=== PATIENT | female | born 1965 | race Caucasian/White ===

== ENCOUNTER 2017-10-04 13:58 | Emergency (ER) | payer OTHER ==
[~2017-10-04] VITALS: Ht 167.6 cm; Wt 70.3 kg
[2017-10-04] MEDS ORDERED: Aspir-Trin325 MG PO (15:04)
[2017-10-04 15:23] LABS: BASOPHILS ABSOLUTE AUTO 0.08 K/mm3 (0.00-0.23); BASOPHILS PERCENT AUTO 1 % (0-2); EOSINOPHILS ABSOLUTE AUTO 0.16 K/mm3 (0.00-0.68); EOSINOPHILS PERCENT AUTO 2 % (0-6); Hemoglobin 14.9 g/dL (11.5-16.0); IMMATURE GRAN ABSOLUTE AUTO 0.03 K/mm3 (0.00-0.10); IMMATURE GRAN PERCENT AUTO 0 % (0-1); LYMPHOCYTES ABSOLUTE AUTO 3.37 K/mm3 (0.84-5.20); LYMPHOCYTES PERCENT AUTO 40 % (21-46); MONOCYTES ABSOLUTE AUTO 0.58 K/mm3 (0.16-1.47); MONOCYTES PERCENT AUTO 7 % (4-13); Mean Corpuscular HGB 28.9 pg (26.0-34.0); Mean Corpuscular HGB Conc 33.1 g/dL (31.5-36.5); Mean Corpuscular Volume 87 fL (80-100); NEUTROPHILS PERCENT AUTO 50 % (41-73); RDW Coefficient Variation 12.8 % (11.7-14.2); RDW Standard Deviation 40.7 fL (35.1-46.3); Red Blood Cell Count 5.16 M/mm3 (3.80-5.20); White Blood Cell Count 8.52 K/mm3 (4.00-11.30)
[2017-10-04 15:27] LABS: Mean Platelet Volume 11.3 fL (9.1-12.4); Platelet Count 195 K/mm3 (150-400)
[2017-10-04 15:47] LABS: Magnesium, Blood 2.6 mg/dL (1.6-2.4)
[2017-10-04 15:49] LABS: Anion Gap 9 mmol/L (6-16); Blood Urea Nitrogen 9 mg/dL (8-24); Bun/Creatinine Ratio 14.5 (12.0-20.0); CO2, Blood 24 mmol/L (21-32); Chloride, Blood 107 mmol/L (98-108); Creatinine, Blood 0.62 mg/dL (0.40-1.00); Glomerular Filtration Rate >60 (60-); Glucose, Blood 83 mg/dL (70-99); Potassium, Blood 3.8 mmol/L (3.5-5.5); Sodium, Blood 140 mmol/L (136-145)
[2017-10-04] MEDS ORDERED: PSEU120ER PO (19:19)
== END 2017-10-04 19:27 | disposition home or self-care (01) ==
LOC: ER 13:58
PROVIDERS: Emergency Medicine
DX: H65.93 Unspecified nonsuppurative otitis media, bilateral (principal); R42 Dizziness and giddiness; F17.200 Nicotine dependence, unspecified, uncomplicated; Z79.82 Long term (current) use of aspirin
CPT/HCPCS: 70450; 80048; 83735; 84484; 85025; 93005; 93010; 99284

== ENCOUNTER → 2017-12-04 | Outpatient (CLI) | payer OTHER ==
[~2017-12-04] MED LIST: Aspir-Trin325 MG PO; PSEU120ER PO
== END | disposition home or self-care (01) ==
LOC: LAB SHORT 16:26 → LAB 16:26
DX: R05 Cough (principal)
CPT/HCPCS: 87798

== ENCOUNTER 2018-06-08 12:36 | Emergency (ER) | payer OTHER ==
[~2018-06-08] VITALS: Ht 170.2 cm; Wt 68.0 kg
[2018-06-08] MEDS ORDERED: ALBU90OI INH (13:44)
[2018-06-08] MEDS ORDERED: Zithromax250 MG PO (13:44)
== END 2018-06-08 13:51 | disposition home or self-care (01) ==
LOC: ER 12:36
DX: R05 Cough (principal); F17.210 Nicotine dependence, cigarettes, uncomplicated; Z91.048 Other nonmedicinal substance allergy status; Z79.82 Long term (current) use of aspirin
CPT/HCPCS: 94640; 99283-25

== ENCOUNTER → 2019-03-18 | Outpatient (CLI) | payer OTHER ==
[~2019-03-18] MED LIST changes: +ALBU90OI INH; +Zithromax250 MG PO
[2019-03-20 14:07] LABS: HPV 16 Negative (Negative); HPV 18 Negative (Negative); HPV OTHER HR TYPES Negative (Negative)
== END | disposition home or self-care (01) ==
LOC: EDSTATUS 10:52 → LAB 14:18 → LAB SHORT 14:18
PROVIDERS: Nurse Practitioner Women's Health
DX: Z12.72 Encounter for screening for malignant neoplasm of vagina (principal); Z91.89 Other specified personal risk factors, not elsewhere classified
CPT/HCPCS: 87624; G0123

== ENCOUNTER 2022-03-21 19:18 | Emergency (ER) | payer OTHER ==
[~2022-03-21] VITALS: Ht 167.6 cm; Wt 77.1 kg
== END 2022-03-21 19:54 | disposition home or self-care (01) ==
LOC: ER 19:18
DX: H00.014 Hordeolum externum left upper eyelid (principal); F17.210 Nicotine dependence, cigarettes, uncomplicated; Z79.82 Long term (current) use of aspirin
CPT/HCPCS: 99282

== ENCOUNTER → 2022-08-17 | Outpatient (CLI) | payer OTHER | END | disposition home or self-care (01) | LOC: LAB SHORT 09:30 | DX: R05.1 Acute cough (principal); R09.3 Abnormal sputum | CPT/HCPCS: 87070; 87205 ==

== ENCOUNTER 2023-07-31 08:50 | Day surgery (SDC) | payer OTHER ==
[2023-07-31] VITALS (9 sets, daily range): BP systolic 97–131; BP diastolic 43–76
[~2023-07-31] VITALS: Ht 167.6 cm; Wt 80.5 kg
[2023-07-31] MEDS ORDERED: CeFAZolin Sodium 2,000 MG in NS 50 ML IV SCH (09:20)
[2023-07-31] MEDS ORDERED: Lactated Ringer's 1,000 ML IV SCH (09:20)
--- NOTE | 2023-07-31 10:15 | NUR ---
Ambulatory in Day Surgery History, Chart, Medications and Allergies reviewed before start of procedure.Patient confirms NPO status and agrees with scheduled surgery. Patient reports completing Chlorhexadine shower X2 prior to admission to hospital. PATIENT WITH COUGH. REPORTS PRESENT FOR 3 WEEKS. IMPROVING AT THIS TIME.
[2023-07-31] MEDS ORDERED: Bupivacaine 0.5% HCl 5 MG/ML 30MLVIAL ONE (10:49)
[2023-07-31] MEDS ORDERED: Ipratropium/Albuterol SulF 2.5-0.5MG/3 ML Amp ONE (11:29)
[2023-07-31] MEDS ORDERED: OxyCODONE 5 mg/Acetamin 325 mg TABLET PO PRN (11:40)
[2023-07-31] MEDS ORDERED: Ondansetron HCl 2 MG / ML 2ML Vial IV PRN (11:40)
--- NOTE | 2023-07-31 12:50 | NUR ---
Patient up to Ambulate independently. Gait steady. VSS AND CONSISTENT WITH PT BASELINE. PT HAS NO COMPLAINTS AND VERBALIZES READINESS TO GO HOME. Discharge instructions reviewed with patient. Patient verbalizes understanding. Copy given to patient to take home. PT WAS UP TO BR AND HAD MINIMAL VAGINAL BLEEDING NOTED. [employer] PAD PROVIDED FOR RIDE HOME. Patient States Post-Procedure ride home has been arranged. Discharged via wheelchair to private car for ride home. PT BELONGINGS RETURNED TO PT.
== END 2023-07-31 12:52 | disposition home or self-care (01) ==
LOC: ORSCMMR 08:50 → ORD 10:15 → ORSCMMR 12:52
PROVIDERS: Obstetrics & Gynecology
PROC: 0HB8XZX Excision of Buttock Skin, External Approach, Diagnostic (ICD-10-PCS; principal; 2023-07-31 10:15)
DX: A63.0 Anogenital (venereal) warts (principal); D68.51 Activated protein C resistance; Z79.82 Long term (current) use of aspirin; Z87.891 Personal history of nicotine dependence; J45.909 Unspecified asthma, uncomplicated; Z79.51 Long term (current) use of inhaled steroids; Z79.899 Other long term (current) drug therapy
CPT/HCPCS: 88305; J0690; J7120

== ENCOUNTER 2024-07-02 09:22 | Inpatient (IN) | payer OTHER ==
[~2024-07-02] VITALS: Ht 167.6 cm; Wt 72.6 kg
[2024-07-02] VITALS (14 sets, daily range): BP systolic 85–121; BP diastolic 58–83
[~2024-07-02 09:22] MED LIST changes: +ASPI81CH PO; -Aspir-Trin325 MG PO
[2024-07-02] MEDS ORDERED: FentaNYL Citrate 50 MCG/ML 2 ML Injection ONE ×2 (09:28→10:49)
[2024-07-02] MEDS ORDERED: Verapamil HCL 2.5 MG/ML 2ML Injection ONE (09:28)
[2024-07-02] MEDS ORDERED: Phenylephrine HCl 100 MCG/ML-NS 10MLSYR (1MG/10ML) ONE (09:28)
[2024-07-02] MEDS ORDERED: NS 1,000 ML IV ONE ×2 (09:28)
[2024-07-02] MEDS ORDERED: Midazolam HCl 1MG / ML 2ML Vial ONE (09:28)
[2024-07-02] MEDS ORDERED: Heparin Sodium 1000 Units/ML 10ML MDV ONE (09:28)
[2024-07-02] MEDS ORDERED: Atropine Sulfate 0.1 MG/ML 10ML SYR ONE (09:28)
[2024-07-02] MEDS ORDERED: Nitroglycerin 2 MG/20 ML BTL ONE (09:29)
[2024-07-02] MEDS ORDERED: NS 250 ML IV ONE (09:29)
[2024-07-02 09:38] LABS: BASOPHILS ABSOLUTE AUTO 0.11 K/mm3 (0.00-0.23); BASOPHILS PERCENT AUTO 1 % (0-2); EOSINOPHILS ABSOLUTE AUTO 0.16 K/mm3 (0.00-0.68); EOSINOPHILS PERCENT AUTO 2 % (0-6); Hematocrit 41.9 % (33.0-51.0); Hemoglobin 13.9 g/dL (11.5-16.0); IMMATURE GRAN ABSOLUTE AUTO 0.05 K/mm3 (0.00-0.10); IMMATURE GRAN PERCENT AUTO 1 % (0-1); LYMPHOCYTES ABSOLUTE AUTO 3.97 K/mm3 (0.84-5.20); LYMPHOCYTES PERCENT AUTO 36 % (21-46); MONOCYTES ABSOLUTE AUTO 0.67 K/mm3 (0.16-1.47); MONOCYTES PERCENT AUTO 6 % (4-13); Mean Corpuscular HGB 29.6 pg (26.0-34.0); Mean Corpuscular HGB Conc 33.2 g/dL (31.5-36.5); Mean Corpuscular Volume 89 fL (80-100); Mean Platelet Volume 10.4 fL (9.1-12.4); NEUTROPHILS ABSOLUTE AUTO 5.95 K/mm3 (1.96-9.15); NEUTROPHILS PERCENT AUTO 55 % (41-73); Platelet Count 248 K/mm3 (150-400); RDW Standard Deviation 42.2 fL (35.1-46.3); Red Blood Cell Count 4.69 M/mm3 (3.80-5.20); White Blood Cell Count 10.91 K/mm3 (4.00-11.30)
[2024-07-02 09:52] LABS: Albumin, Blood 3.2 g/dL (3.4-5.0); Albumin/Globulin Ratio 0.9 (0.8-1.8); Bilirubin, Total 0.3 mg/dL (0.1-1.0); Bun/Creatinine Ratio 16.6 (12.0-20.0); Calcium, Blood 8.9 mg/dL (8.5-10.1); Creatinine, Blood 0.72 mg/dL (0.40-1.00); Globulin, Blood 3.7 g/dL (2.2-4.0); Potassium, Blood 3.9 mmol/L (3.5-5.5); Total Protein, Blood 6.9 g/dL (6.4-8.2)
[2024-07-02 09:55] LABS: International Normalized Ratio 0.96; Prothrombin Time Results 10.3 Sec (9.7-11.5)
[2024-07-02] MEDS ORDERED: Ticagrelor 90 MG TABLET ONE (10:15)
[2024-07-02] MEDS ORDERED: Bisacodyl 10 MG Supp PR PRN (10:30)
[2024-07-02] MEDS ORDERED: FLU VACC TS2024-25(6MOS UP)/PF 45 MCG/0.5 ML SYRINGE IM PRN (10:30)
[2024-07-02] MEDS ORDERED: Magnesium Hydroxide Conc 10 ML UDC PO PRN (10:30)
[2024-07-02] MEDS ORDERED: Tirofiban HCL Monohydrate 3.75 MG/15 ML Vial ONE (10:37)
[2024-07-02] MEDS ORDERED: Tirofiban HCL M-Hyd/NS 250 ML IV ONE (10:39)
[2024-07-02] MEDS ORDERED: Heparin Sodium,Porcine 5,000 UNIT/0.5 ML SDV SC ONE (11:12)
[2024-07-02] MEDS ORDERED: NS 1,000 ML IR ONE (12:10)
--- NOTE | 2024-07-02 12:11 | NUR ---
PT TO FLOOR FROM ENVIRONMENT COORDINATOR, BEDSIDE REPORT RECIEVED FROM RHIANNA. Pravin hand noted to be cool and dusky. Dr. Henriquez called, Agiocept and heparin d/c, 2 cc removed from TR band and provider at bedside to assess. Small hematoma noted above TR band, BP cuff inflated over site to hold pressure.
[2024-07-02] MEDS ORDERED: Albuterol HFA200 ACT/6.7 GM INH INH PRN (16:10)
[2024-07-02] MEDS ORDERED: Morphine Sulfate 4 MG/1 ML Injection IV PRN (16:10)
[2024-07-02] MEDS ORDERED: Acetaminophen 325 MG TABLET PO PRN (16:10)
--- NOTE | 2024-07-02 18:06 | NUR ---
SHIFT SUMMARY TR Band removed 1600, no hematoma, no bleeding noted. Pt stating arm is very sore, bruising noted. Pain meds given per MAR. Education provided on new medications, cath procedure and after-care, patient is very receptive to education and asking questions. Echo done. Requesting that follow up PCP appointment be made with either Dr. Loredo or Delroy at [facility]. Family updated on patient and plan of care.
--- NOTE | 2024-07-02 18:54 | NUR ---
UPDATE Called into patient's room. She's stating that she feels like something is sitting on her chest and she can't take a deep breath. O2 high 90s, lung sounds clear. Per patient this morning it felt like a "large man was sitting on my chest, now it's just a small person EKG obtained and spoke with Dr. Henriquez at 1853, sent a picture of EKG for him to review. No new orders.
[2024-07-02] MEDS ORDERED: Nitroglycerin 0.4 MG SUBL SL PRN (19:20)
[2024-07-02] MEDS ORDERED: Ticagrelor 90 MG TABLET PO SCH (20:00)
--- NOTE | 2024-07-02 20:31 | NUR ---
ASSUMED CARE THIS RN ASSUMED CARE AT APPROXIMATELY 1915. PT COMPLAINED OF CHILEL THAT WAS TREATED WITH TYLENOL AND R ARM PAIN FOR WHICH AN ICE PACK WAS USED. PT WALKED TO THE BATHROOM AND VOIDED. VS STABLE, PT DENIES FURTHER CHEST PAIN. WILL CONTINUE PLAN OF CARE.
[2024-07-03] VITALS (12 sets, daily range): BP systolic 90–131; BP diastolic 58–84
[2024-07-03 03:36] LABS: BASOPHILS ABSOLUTE AUTO 0.08 K/mm3 (0.00-0.23); BASOPHILS PERCENT AUTO 1 % (0-2); EOSINOPHILS ABSOLUTE AUTO 0.19 K/mm3 (0.00-0.68); EOSINOPHILS PERCENT AUTO 2 % (0-6); Hematocrit 36.4 % (33.0-51.0); Hemoglobin 12.2 g/dL (11.5-16.0); IMMATURE GRAN ABSOLUTE AUTO 0.04 K/mm3 (0.00-0.10); IMMATURE GRAN PERCENT AUTO 0 % (0-1); LYMPHOCYTES ABSOLUTE AUTO 3.94 K/mm3 (0.84-5.20); LYMPHOCYTES PERCENT AUTO 39 % (21-46); MONOCYTES ABSOLUTE AUTO 0.61 K/mm3 (0.16-1.47); MONOCYTES PERCENT AUTO 6 % (4-13); Mean Corpuscular HGB 29.9 pg (26.0-34.0); Mean Corpuscular HGB Conc 33.5 g/dL (31.5-36.5); Mean Corpuscular Volume 89 fL (80-100); Mean Platelet Volume 10.6 fL (9.1-12.4); NEUTROPHILS ABSOLUTE AUTO 5.33 K/mm3 (1.96-9.15); NEUTROPHILS PERCENT AUTO 52 % (41-73); Platelet Count 190 K/mm3 (150-400); RDW Coefficient Variation 13.1 % (11.7-14.2); Red Blood Cell Count 4.08 M/mm3 (3.80-5.20); White Blood Cell Count 10.19 K/mm3 (4.00-11.30)
[2024-07-03 03:56] LABS: Albumin, Blood 2.8 g/dL (3.4-5.0); Albumin/Globulin Ratio 0.9 (0.8-1.8); Bilirubin, Total 0.4 mg/dL (0.1-1.0); Bun/Creatinine Ratio 14.3 (12.0-20.0); Calcium, Blood 8.5 mg/dL (8.5-10.1); Creatinine, Blood 0.77 mg/dL (0.40-1.00); Magnesium, Blood 2.2 mg/dL (1.6-2.4); Potassium, Blood 3.9 mmol/L (3.5-5.5); Total Protein, Blood 5.8 g/dL (6.4-8.2)
--- NOTE | 2024-07-03 03:56 | NUR ---
SHIFT SUMMARY NO ACUTE EVENTS OVER NIGHT. PT COMPLAINED OF CHILEL AND R ARM PAIN WITH R WRIST IV SITE. IV REMOVED. TYLENOL TREATED CHILEL EFFECTIVELY. NO COMPLAINTS OF CHEST PAIN. VS STABLE. ON RA. AMBULATED SEVERAL TIMES TO THE BATHROOM. WILL CONTINUE PLAN OF CARE.
--- NOTE | 2024-07-03 08:38 | NUR ---
PT IS EXPRESSING HER FRUSTRATION, STATES THAT "NO ONE IS LISTENING TO ME". 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 SHE IS NOT INTERESTED IN A "LIFE LONG MEDICATION" ESPECIALLY A STATIN THAT IS GOING TO MAKE HER FEEL FUNNY. SHE STATED THAT SHE IS UPSET AND JUST FINISHED "ARGUING WITH THE DR." ABOUT THE MEDICATION. EDUCATION ATTEMPTED.
[2024-07-03] MEDS ORDERED: Atorvastatin 40 MG Tab PO SCH (09:00)
[2024-07-03] MEDS ORDERED: Aspirin 81 MG Chew PO SCH (09:00)
--- NOTE | 2024-07-03 10:21 | NUR ---
Patient has stated repeatedly that she will not take any "lifelong" medications and that she specifically will not take a beta rio or statin. She stated that she will only take Aspirin and Brillinta for one year after this. I had a lengthy conversation with her about her medications and she remained steadfast in her wishes to not take any other medications. I spoke with Dr. Henriquez on the phone about this and he said that he spoke with her at length this morning about the medications and explained them to her. I also printed patient education on CAD, angina, meds post PA, cholesterol, and medications.
[2024-07-03] MEDS ORDERED: EZET10 PO (11:14)
[2024-07-03] MEDS ORDERED: METO25ER PO (11:16)
[2024-07-03] MEDS ORDERED: TICA90TA PO (11:16)
--- NOTE | 2024-07-03 12:12 | NUR ---
PT PROVIDED DISCHARGE PACKET. WENT OVER PAPERWORK WITH HER. SHE WILL SCHEDULE FOLLOW-UP APPOINTMENTS AND WILL RE-EVALUATE TAKING NEW MEDICATIONS AFTER DOING SOME FURTHER EDUCATION. PT LEFT THE FLOOR AT 1205.
[2024-07-04] MEDS ORDERED: Ezetimibe 10 MG Tab PO SCH (09:00)
[2024-07-04] MEDS ORDERED: Metoprolol Succinate 25 MG TABCR PO SCH (09:00)
== END 2024-07-03 12:10 | disposition home or self-care (01) | DRG 322 ==
LOC: ER 09:22 → ICUE 09:44
PROVIDERS: Student in an Organized Health Care Education/Training Program; ADMIT Family Medicine
PROC: 02C03ZZ Extirpation of Matter from Coronary Artery, One Artery, Percutaneous Approach (ICD-10-PCS; principal; 2024-07-02)
PROC: 027034Z Dilation of Coronary Artery, One Artery with Drug-eluting Intraluminal Device, Percutaneous Approach (ICD-10-PCS; 2024-07-02)
PROC: 4A023N7 Measurement of Cardiac Sampling and Pressure, Left Heart, Percutaneous Approach (ICD-10-PCS; 2024-07-02)
PROC: B2111ZZ Fluoroscopy of Multiple Coronary Arteries using Low Osmolar Contrast (ICD-10-PCS; 2024-07-02)
PROC: B240ZZ3 Ultrasonography of Single Coronary Artery, Intravascular (ICD-10-PCS; 2024-07-02)
DX: I21.19 ST elevation (STEMI) myocardial infarction involving other coronary artery of inferior wall (principal); D68.51 Activated protein C resistance; I50.30 Unspecified diastolic (congestive) heart failure; E78.5 Hyperlipidemia, unspecified; I25.10 Atherosclerotic heart disease of native coronary artery without angina pectoris; J45.20 Mild intermittent asthma, uncomplicated; I95.9 Hypotension, unspecified; Z79.82 Long term (current) use of aspirin; Z86.73 Personal history of transient ischemic attack (TIA), and cerebral infarction without residual deficits; Z86.16 Personal history of COVID-19; Z87.891 Personal history of nicotine dependence; Z79.02 Long term (current) use of antithrombotics/antiplatelets
CPT/HCPCS: 36415; 70450; 76937; 80053; 83735; 84484; 85025; 85347; 85520; 85610; 85730; 92973; 93005; 93010; 93306; 93458; 94640; 94664; 94760; 99152; 99153; 99285-25; A9270; C1725; C1753; C1769; C1874; C1887; C9606; J0461; J1644; J2250; J2270; J2371; J3010; J3246; J7030; J7050; Q9967